=== PATIENT | male | born 1970 | race Caucasian/White ===

== ENCOUNTER → 2019-08-21 11:19 | Outpatient (REF) | payer OTHER, MEDICARE, SELFPAY | LOC: ANHLAB 11:19 | PROVIDERS: PCP Family Medicine; Visit Provider Nurse Practitioner Family | DX: C44.219 Basal cell carcinoma of skin of left ear and external auricular canal (principal) | CPT/HCPCS: 88305 ==

== ENCOUNTER → 2019-12-24 08:54 | Outpatient (REF) | payer OTHER, MEDICARE, SELFPAY | LOC: ANHLAB 08:54 | PROVIDERS: PCP Family Medicine; Visit Provider Nurse Practitioner Family | DX: C44.219 Basal cell carcinoma of skin of left ear and external auricular canal (principal) | CPT/HCPCS: 88305; 88331 ==

== ENCOUNTER → 2020-05-13 14:20 | Outpatient (REF) | payer OTHER, MEDICARE, SELFPAY | LOC: ANHLAB 14:20 | PROVIDERS: PCP Family Medicine; Visit Provider Nurse Practitioner | DX: D49.2 Neoplasm of unspecified behavior of bone, soft tissue, and skin (principal) | CPT/HCPCS: 88305 ==